=== PATIENT | male | born 1945 | race Caucasian/White ===

== ENCOUNTER 2019-11-30 07:35 | Outpatient (CLI) | payer MEDICARE, SELFPAY ==
[2019-11-30 08:15] LABS: Alanine Aminotransferase 63 U/L (4-50); Albumin Level 4.4 g/dL (3.5-5.1); Alkaline Phosphatase 62 U/L (38-126); Aspartate Amino Transferase 53 U/L (17-59); Bilirubin,Total 0.6 mg/dL (0.2-1.3); Blood Urea Nitrogen 24 mg/dL (9-20); Calcium 9.1 mg/dL (8.4-10.2); Carbon Dioxide 24 mmol/L (22-30); Chloride 107 mmol/L (98-107); Cholesterol 108 mg/dL (0-200); Estimated Glomerular Filt Rate > 60; Glucose 118 mg/dL (75-110); HDL Direct 36 mg/dL; Potassium 4.3 mmol/L (3.4-5.0); Sodium 139 mmol/L (137-145); Triglycerides 74 mg/dL (<150)
[2019-11-30 08:26] LABS: LDL Cholesterol Direct 48 mg/dL
== END 2019-11-30 07:36 | disposition home or self-care (01) ==
PROVIDERS: PCP Family Medicine; Visit Provider Internal Medicine Cardiovascular Disease
DX: E78.5 Hyperlipidemia, unspecified (principal)
CPT/HCPCS: 36415; 80053; 80061

== ENCOUNTER 2020-09-26 06:57 | Outpatient (CLI) | payer MEDICARE, SELFPAY ==
[2020-09-26 07:45] LABS: Add Urine Microscopic? NO; Appearance Urine Clear (Clear); Bilirubin Urine Negative (Negative); Blood Urine Negative (Negative); Color Urine Yellow (Yellow); Glucose Urine UA Negative (Negative); Ketones Urine Negative (Negative); Leukocyte Esterase Ur Negative LEU/UL (NEGATIVE); Nitrate Urine Negative (Negative); Protein Urine Negative (Negative); Specific Grav Ur 1.017 (1.001-1.035); Urobilinogen Urine Negative mg/dL (<2.0)
[2020-09-26 07:51] LABS: Basophils Absolute Auto 0.1 K/mm3 (0.0-0.1); Basophils Percent Auto 0.9 % (0.2-1.2); Eosinophils Absolute Auto 0.3 K/mm3 (0-0.3); Eosinophils Percent Auto 4.2 % (0-4.4); Hematocrit 41.1 % (42.0-52.0); Hemoglobin 14.1 g/dL (14.0-18.0); Immature Granulocyte Absolute 0.01 K/mm3 (0.00-0.031); Immature Granulocyte Percent A 0.2 % (0-0.5); Lymphocytes Absolute Auto 2.11 K/mm3 (0.9-3.2); Mean Corpuscular HGB Conc 34.3 g/dl (32-36); Mean Corpuscular Hemoglobin 30.1 pg (26-34); Mean Corpuscular Volume 87.6 fl (80-100); Mean Platelet Volume 9.6 fl (7.4-10.4); Monocytes Absolute Auto 0.7 K/mm3 (0.1-0.6); Monocytes Percent Auto 10.2 % (2.6-8.5); Neutrophils Absolute Auto 3.3 K/mm3 (1.3-6.7); Neutrophils Percent Auto 51.5 % (45.5-73.1); Platelet Count Result 181 k/mm3 (150-375); Red Blood Count 4.69 M/mm3 (4.6-6.20); White Blood Count 6.4 K/mm3 (4.5-10.0)
[2020-09-26 08:57] LABS: LDL Cholesterol Direct 53 mg/dL
[2020-09-26 09:06] LABS: Alanine Aminotransferase 35 U/L (4-50); Albumin Level 4.2 g/dL (3.5-5.1); Alkaline Phosphatase 55 U/L (38-126); Anion Gap 5 mmol/L (8-16); Aspartate Amino Transferase 42 U/L (17-59); Bilirubin,Total 0.7 mg/dL (0.2-1.3); Blood Urea Nitrogen 17 mg/dL (9-20); Calcium 9.3 mg/dL (8.4-10.2); Carbon Dioxide 28 mmol/L (22-30); Chloride 108 mmol/L (98-107); Cholesterol 112 mg/dL (0-200); Estimated Glomerular Filt Rate > 60; Glucose 109 mg/dL (75-110); HDL Direct 38 mg/dL; Potassium 4.1 mmol/L (3.4-5.0); Sodium 141 mmol/L (137-145); Triglycerides 95 mg/dL (<150)
[2020-09-26 09:32] LABS: Prostate Specific Antigen 1.3 ng/mL (< OR = 4.0)
[2020-09-26 09:41] LABS: Hemoglobin A1C 5.9 % (<5.7)
== END 2020-09-26 06:58 | disposition home or self-care (01) ==
PROVIDERS: PCP Family Medicine; Visit Provider Family Medicine
DX: R35.1 Nocturia (principal); E78.2 Mixed hyperlipidemia; R73.01 Impaired fasting glucose; G47.33 Obstructive sleep apnea (adult) (pediatric)
CPT/HCPCS: 36415; 80048; 80061; 80076; 81003; 83036; 84153; 84443; 85025

== ENCOUNTER 2020-10-08 08:49 | Outpatient (CLI) | payer MEDICARE, SELFPAY | END 2020-10-08 08:50 | disposition home or self-care (01) | LOC: ANHAUDIO 08:51 | PROVIDERS: PCP Family Medicine; Visit Provider Otolaryngology | DX: H93.12 Tinnitus, left ear (principal); H91.93 Unspecified hearing loss, bilateral | CPT/HCPCS: 92557; 92567 ==

== ENCOUNTER → 2020-12-06 00:32 | Outpatient (CLI) | payer MEDICARE, SELFPAY ==
[2020-12-06 21:20] LABS: SARS-CoV-2 RNA PCR Negative
== END ==
PROVIDERS: PCP Family Medicine; Visit Provider Internal Medicine Gastroenterology
DX: Z01.812 Encounter for preprocedural laboratory examination (principal); Z20.822 Contact with and (suspected) exposure to COVID-19
CPT/HCPCS: C9803; U0003; U0005

== ENCOUNTER 2020-12-09 02:18 | Day surgery (SDC) | payer MEDICARE, SELFPAY ==
[2020-11-20 13:56] VITALS: BMI 32.5
--- NOTE | 2020-12-08 14:29 | P.PNAN_ITS ---
Anes - Initial Pre Proc Eval Procedure: Operation Date: 12/09/20 08:00 Proposed Procedures p Screening Colonoscopy - Wayne Barton MD Date/Time: 12/08/20 14:29 Surgeon: Wayne Barton MD Pre Op Diagnosis: hx of colon polyps Patient Data Age: 75 Gender: M Height: 1.73 m Weight: 97 kg Allergies Allergy/AdvReac Type Severity Reaction Status Date / Time Iodinated Contrast Media Allergy Unknown Stopped Verified 12/09/20 06:44 Breathing morphine Allergy Unknown Unknown Verified 12/09/20 06:44 Penicillins Allergy Unknown Unknown Verified 12/09/20 06:44 Contrast Media Allergy Severe Stopped Uncoded 11/24/20 10:46 Breathing Home Medications Medication Instructions Recorded Confirmed Type aspirin 81 mg tablet,delayed 81 mg PO DAILY 04/19/19 12/09/20 History release atorvastatin 40 mg tablet 40 mg PO DAILY #90 tablet 09/16/20 11/24/20 Rx famotidine 20 mg tablet 20 mg PO BID PRN tablet 09/16/20 12/09/20 History metoprolol succinate 25 mg See Rx Instructions .ROUTE 11/09/20 11/24/20 Rx tablet,extended release 24 hr .COMPLEX #90 tablet Patient hx anesthesia problems: none Family hx anesthesia problems: none PMFSH Past Medical History Medical History Abnormal fasting glucose Adenomatous colon polyp (09/24/11) 3 adenomatous polyps Ascending aortic aneurysm BMI 33.0-33.9,adult CAD in [place] artery Chest pain in adult 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 Dyslipidemia Gastro-esophageal reflux disease without esophagitis Hypersomnia Moderate aortic stenosis Nocturia Obstructive sleep apnea GIOVANI on CPAP Personal history of other diseases of the circulatory system SOB (shortness of breath) Unspecified atrial flutter Surgical History Surgical History Aortic valve replaced H/O elbow surgery H/O hemorrhoidectomy H/O thoracic aortic aneurysm repair History of aortic valve replacement with bioprosthetic valve Family History Family History Father Acute myocardial infarction Social History Social History Smoking status: Former smoker Second hand tobacco smoke exposure: No Smoking end date: 05/30/69 Alcohol intake: never Substance use: never Substance use type: does not use Living arrangements: with family Spiritual care concerns: No Anes - Eval Final PreProcedure Day of Procedure 12/08/20 14:29 Patient weight: obese Heart: regular rate and rhythm Lungs: clear to auscultation and normal air movement Airway: Mallampati scale class II Neurological: alert and oriented Last oral intake: >/= 8 hours ASA classification: III Emergent: no Anesthetic plan: proceed Anesthesia type and monitoring: general GIVS and standard monitoring Informed Consent: The patient's anesthetic plan and its attendant risks and benefits were discussed with the patient/family/POA. Questions were solicited and answers provided to the satisfaction of the patient/family/POA.
[2020-12-09 06:48] VITALS: BP 117/82; PULSE 75; RESP 20; TEMP 35.8; O2SAT 99
[2020-12-09] MEDS: LACTATED RINGERS 1,000 ML 150 ML IV CONT (06:58)
--- NOTE | 2020-12-09 07:55 | PM.HPGS ---
History of Present Illness History of Present Illness Consent: Risks, benefits, and alternatives have been discussed and questions answered. Patient agrees to proceed with procedure. Chief complaint: hx of colon polyps Narrative: Effie Sotelo is a 75 year old male with colon polyps, due to have another colonoscopy Review of Systems Constitutional: Constitutional: Denies headache(s) and Denies weakness Eyes: Eyes: Denies blurry vision ENT: Reports Normal hearing present, Denies headache(s) and Denies neck pain Cardiovascular: Cardiovascular: Denies chest pain and Denies dyspnea Respiratory: Respiratory: Denies dyspnea Gastrointestinal: Gastrointestinal: Reports no additional gastrointestinal complaints Genitourinary: Genitourinary: Denies dysuria Musculoskeletal: Musculoskeletal: Denies neck pain Integumentary/Breasts: Skin/Breast: Denies dry skin Neurologic: Reports Normal hearing present, Denies headache(s) and Denies weakness Psychiatric: Psychiatric: Denies anxiety Endocrine: Endocrine: Denies change in body appearance Hematologic/Lymphatic: Hematologic/Lymphatic: Denies easy bleeding Allergic/Immunologic: Allergic/Immunologic: Denies urticaria PMF Past Medical History Medical History Abnormal fasting glucose Adenomatous colon polyp (09/24/11) 3 adenomatous polyps Ascending aortic aneurysm BMI 33.0-33.9,adult CAD in [place] artery Chest pain in adult 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 Dyslipidemia Gastro-esophageal reflux disease without esophagitis Hypersomnia Moderate aortic stenosis Nocturia Obstructive sleep apnea GIOVANI on CPAP Personal history of other diseases of the circulatory system SOB (shortness of breath) Unspecified atrial flutter Surgical History Surgical History Aortic valve replaced H/O elbow surgery H/O hemorrhoidectomy H/O thoracic aortic aneurysm repair History of aortic valve replacement with bioprosthetic valve Family History Family History Father Acute myocardial infarction Social History Social History Smoking status: Former smoker Second hand tobacco smoke exposure: No Smoking end date: 05/30/69 Alcohol intake: never Substance use: never Substance use type: does not use Living arrangements: with family Spiritual care concerns: No Meds Home Medications and Allergies Home Medications Medication Instructions Recorded Confirmed Type aspirin 81 mg tablet,delayed 81 mg PO DAILY 04/19/19 12/09/20 History release atorvastatin 40 mg tablet 40 mg PO DAILY #90 tablet 09/16/20 11/24/20 Rx famotidine 20 mg tablet 20 mg PO BID PRN tablet 09/16/20 12/09/20 History metoprolol succinate 25 mg See Rx Instructions .ROUTE 11/09/20 11/24/20 Rx tablet,extended release 24 hr .COMPLEX #90 tablet Allergies Allergy/AdvReac Type Severity Reaction Status Date / Time Iodinated Contrast Media Allergy Unknown Stopped Verified 12/09/20 06:44 Breathing morphine Allergy Unknown Unknown Verified 12/09/20 06:44 Penicillins Allergy Unknown Unknown Verified 12/09/20 06:44 Contrast Media Allergy Severe Stopped Uncoded 11/24/20 10:46 Breathing Vital Signs Vital Signs - 24 hr 12/09/20 06:48 Temperature 96.5 F L Pulse Rate 75 Respiratory Rate 20 Blood Pressure 117/82 Pulse Oximetry 99 Exam Const: General: comfortable and no acute distress HENMT: General nose exam: Normal nares present Eyes: General: appearance normal, both eyes and all related structures Neck: Neck: no JVD Resp: Auscultation: clear to auscultation bilaterally Cardio: Rate: regular rate Rhythm: regular rhythm GI: Inspection: non-distended GI Palp: Yes Soft to palpation Skin
[2020-12-09 08:33] VITALS: BP 118/76; PULSE 61; RESP 19; O2SAT 100
[2020-12-09 08:43] VITALS: BP 125/89; PULSE 60; RESP 16; O2SAT 100
[2020-12-09 08:53] VITALS: BP 145/93; PULSE 58; RESP 15; O2SAT 99
== END 2020-12-09 09:09 | disposition home or self-care (01) ==
PROVIDERS: PCP Family Medicine; Visit Provider Internal Medicine Gastroenterology
PROC: 0DJD8ZZ Inspection of Lower Intestinal Tract, Via Natural or Artificial Opening Endoscopic (ICD-10-PCS; CPT 45378; principal; 2020-12-09 08:00)
DX: Z12.11 Encounter for screening for malignant neoplasm of colon (principal); K63.5 Polyp of colon; D12.3 Benign neoplasm of transverse colon; K62.82 Dysplasia of anus; K57.30 Diverticulosis of large intestine without perforation or abscess without bleeding; K64.8 Other hemorrhoids; Z79.82 Long term (current) use of aspirin; I71.4 Abdominal aortic aneurysm, without rupture; I25.10 Atherosclerotic heart disease of native coronary artery without angina pectoris; E78.5 Hyperlipidemia, unspecified; I35.0 Nonrheumatic aortic (valve) stenosis; K21.9 Gastro-esophageal reflux disease without esophagitis; G47.33 Obstructive sleep apnea (adult) (pediatric); I48.92 Unspecified atrial flutter; E66.9 Obesity, unspecified; Z68.31 Body mass index [BMI] 31.0-31.9, adult; Z87.891 Personal history of nicotine dependence
CPT/HCPCS: 45385; 45381; 88305; C9803; J2704; J7120; U0003; U0005

== ENCOUNTER 2021-09-22 06:40 | Outpatient (CLI) | payer MEDICARE, SELFPAY ==
[2021-09-22 07:46] LABS: Add Urine Microscopic? NO; Appearance Urine Clear (Clear); Bilirubin Urine Negative (Negative); Blood Urine Negative (Negative); Color Urine Yellow (Yellow); Glucose Urine UA Negative (Negative); Ketones Urine Negative (Negative); Leukocyte Esterase Ur Negative LEU/UL (NEGATIVE); Nitrate Urine Negative (Negative); Protein Urine Negative (Negative); Specific Grav Ur 1.015 (1.001-1.035); Urobilinogen Urine Negative mg/dL (<2.0)
[2021-09-22 07:55] LABS: Alanine Aminotransferase 39 U/L (4-50); Albumin Level 4.7 g/dL (3.5-5.1); Alkaline Phosphatase 62 U/L (38-126); Anion Gap 6 mmol/L (8-16); Aspartate Amino Transferase 43 U/L (17-59); Bilirubin,Total 0.5 mg/dL (0.2-1.3); Blood Urea Nitrogen 18 mg/dL (9-20); Calcium 9.5 mg/dL (8.4-10.2); Carbon Dioxide 29 mmol/L (22-30); Chloride 107 mmol/L (98-107); Cholesterol 123 mg/dL (0-200); Estimated Glomerular Filt Rate > 60; Glucose 112 mg/dL (65-110); HDL Direct 41 mg/dL; Hemoglobin A1C 5.5 % (<5.7); Potassium 4.3 mmol/L (3.4-5.0); Sodium 142 mmol/L (137-145); Triglycerides 82 mg/dL (<150)
[2021-09-22 08:06] LABS: LDL Cholesterol Direct 54 mg/dL
[2021-09-22 09:01] LABS: Folic Acid 8.8 ng/mL (2.76->20)
== END 2021-09-22 06:41 | disposition home or self-care (01) ==
LOC: ANHLAB 06:44
PROVIDERS: PCP Family Medicine; Visit Provider Family Medicine
DX: R73.01 Impaired fasting glucose (principal); E78.2 Mixed hyperlipidemia; R41.3 Other amnesia
CPT/HCPCS: 36415; 80048; 80061; 80076; 81003; 82607; 82746; 83036; 84443

== ENCOUNTER 2021-10-19 12:27 | Outpatient (CLI) | payer MEDICARE, SELFPAY ==
--- NOTE | 2021-10-19 12:46 | ECHO_ITS ---
Patient Info Name: Effie Sotelo Age: 76 years : 1945 Gender: Male Ht: 68 in Wt: 203 lbs BSA: 2.13 m2 HR: 71 bpm BP: 142 / 89 mmHg Technical Quality: Fair Exam Date: 10/19/2021 1:14 PM Exam Location: [facility] Patient Status: Outpatient Admit Date: 10/19/2021 Staff Ordering Physician: Doyle Long DO Manager Of Broadcast Content: Zoey Mustafa RDCS Attending Provider: Doyle Logn DO Referring Physician: Ethan JAQUEZ; Exam Type: CA echo doppler color flow Study Info Indications - AVR Complete two-dimensional, color flow and Doppler transthoracic echocardiogram is performed. Summary 1. Complete two-dimensional, color flow and Doppler transthoracic echocardiogram is performed. 2. Left ventricular chamber dimension is normal. 3. Left ventricular systolic function is normal, estimated at 65-70%. 4. There is mildly increased left ventricular wall thickness. 5. The left ventricular diastolic function is grade I diastolic dysfunction. 6. E/e' 6 is not elevated. 7. Bioprosthetic aortic valve. 8. There is trace tricuspid valve regurgitation. 9. No pulmonary hypertension, estimated pulmonary arterial systolic pressure is 23 mmHg. Left Ventricle E/e' 6 is not elevated. Left ventricular chamber dimension is normal. Left ventricular systolic function is normal, estimated at 65-70%. There is mildly increased left ventricular wall thickness. The left ventricular diastolic function is grade I diastolic dysfunction. Right Ventricle Right ventricular chamber dimension is normal. Right ventricular systolic function is normal. Left Atria Left atrial chamber dimension is normal. Right Atria Right atrial chamber dimension is normal. Aortic Valve Bioprosthetic aortic valve. There is no bioprosthetic aortic valve stenosis. There is no regurgitation of the bioprosthetic aortic valve. Pulmonic Valve There is no pulmonic regurgitation. Mitral Valve There is no mitral valve stenosis. There is no mitral valve regurgitation. Tricuspid Valve There is trace tricuspid valve regurgitation. No pulmonary hypertension, estimated pulmonary arterial systolic pressure is 23 mmHg. Pericardium/Pleural There is no pericardial effusion. Inferior Vena Cava Normal inferior vena cava with >50% collapse upon inspiration consistent with normal right atrial pressure, 5 mmHg. Aorta The aortic root size at the sinus of Valsalva is normal. Left Ventricular Outflow Tract Name Value Normal LVOT 2D LVOT Diameter 2.1 cm LVOT Doppler LVOT Peak Gradient 6 mmHg LVOT Mean Gradient 4 mmHg LVOT VTI 25 cm LVOT VTI/AV VTI Ratio 0.7 LVOT Stroke Volume 86 ml LVOT CO 18.4 l/min LVOT CI 8.7 l/min/m2 Pulmonic Valve Name Value Normal
== END 2021-10-19 12:28 | disposition home or self-care (01) ==
PROVIDERS: PCP Family Medicine; Visit Provider Internal Medicine Cardiovascular Disease
DX: Z95.3 Presence of xenogenic heart valve (principal)
CPT/HCPCS: 93306

== ENCOUNTER 2021-10-19 12:29 | Outpatient (CLI) | payer MEDICARE, SELFPAY ==
--- NOTE | ~2021-10-19 | CT_ITS ---
EXAMINATION: CTA chest EXAM DATE: 10/19/2021 14:04 INDICATION: Z98.890 - Other specified postprocedural states . History of thoracic aortic aneurysm. TECHNIQUE: Computed tomographic angiography (CTA) of the chest was performed with 100 mL Omnipaque-30 0 intravenous contrast. Automated exposure control and iterative reconstruction technique were employ ed. The dose-length product was 571.92 mGy-cm. Maximum intensity projection 3D-reconstructions of the aorta and other arteries were constructed by the technologist on a separate workstation. COMPARISON: 01/10/2018. FINDINGS: Intact sternotomy wires. Changes of ascending aortic repair. The aorta measures 4.3 cm just above the level of the repair, and 3.7 cm at the level of repair. Mild arch calcifications. Aortic e ctasia. The proximal descending aorta measures up to 4.3 cm, which is stable by my measurements. No d issection. Scanning was performed through the renal arteries. The celiac, SMA, renal arteries are pat ent, with origin calcifications. There are no pleural or pericardial effusions. Tracheobronchial t ree is patent. There is no mediastinal, hilar or axillary lymphadenopathy. There is no pneumothor ax. Heart normal in size. Moderate coronary artery calcification. Aortic valve replacement. Uppe r abdomen is unremarkable. There is thoracic spondylosis without osteoblastic or osteolytic lesions identified. IMPRESSION: Fusiform dilation of the ascending and descending thoracic aorta. Status post ascending t horacic aortic repair. Consider follow-up CT in 2-3 years to assess stability. Reviewed, dictated and finalized at location K. IMPRESSION: Fusiform dilation of the ascending and descending thoracic aorta. S tatus post ascending thoracic aortic repair. Consider follow-up CT in 2-3 years to assess stability.
== END 2021-10-19 12:30 | disposition home or self-care (01) ==
PROVIDERS: PCP Family Medicine; Visit Provider Internal Medicine Cardiovascular Disease
DX: Z86.79 Personal history of other diseases of the circulatory system (principal); Z98.890 Other specified postprocedural states
CPT/HCPCS: 71275; 93306; Q9967

== ENCOUNTER 2021-12-13 11:58 | Emergency (ER) | payer MEDICARE, SELFPAY ==
[2021-12-13] VITALS (11 sets, daily range): BP systolic 66–103; BP diastolic 49–70; PULSE 89–104; RESP 11–27; O2SAT 96–98
--- NOTE | ~2021-12-13 | XR_ITS ---
EXAM: XR abdomen NG/feed tube insert DATE: 12/13/2021 14:37 HISTORY: NG TUBE PLACEMENT . COMPARISON: None available. FINDINGS: NG tube, tip and side port terminating over the stomach. Abandoned epicardial pacing wires . Intact sternotomy wire. Paucity of bowel gas. No organomegaly. No abnormal abdominal calcification. Degenerative change in the lumbar spine. IMPRESSION: NG tube, in good position. Reviewed, dictated and finalized at location K. IMPRESSION: NG tube, in good position.
--- NOTE | ~2021-12-13 | XR_ITS ---
EXAMINATION: XR chest ET placement Exam Date/Time: 12/13/2021 14:25 CDT HISTORY: ET tube placement Comparison: Same date at 12:23 PM. RESULT: Lines, tubes, and devices: Endotracheal tube terminates in the right mainstem bronchus. Intact fontanez otomy wires. Lungs and pleura: Diffuse reticular pattern with indistinct vascular margins. Cardiomediastinal silhouette: Stable cardiomediastinal silhouette. Other: No acute osseous or upper abdominal finding. IMPRESSION: Right mainstem bronchus intubation, consider 5.5 cm retraction. Vascular congestion/interstitial wale a. Results reported telephonically to Dr. Hay by Dr. Kowalski at 3:55 PM on 12/13/2021. Reviewed, dictated and finalized at location K. IMPRESSION: Right mainstem bronchus intubation, consider 5.5 cm retraction. Vascular conges tion/interstitial edema. Results reported telephonically to Dr. Hay by Dr. Kowalski at 3:55 PM on 022.
--- NOTE | ~2021-12-13 | CT_ITS ---
EXAMINATION: CT diagnostic chest wo con DATE: 12/13/2021 12:37 INDICATION: Chest pain. History of prior aortic dissection TECHNIQUE: Computed tomography (CT) of the chest was performed without intravenous contrast. Automate d exposure control and iterative reconstruction technique were employed. Exam dose: 767.21 mGy-cm to bertram exam DLP. COMPARISON: None FINDINGS: There is a large high density pericardial effusion, measuring up to 1.7 cm thickness, consi stent with hemopericardium. I telephoned the emergency room at 1308 hours with this critical life thr eatening finding; the emergency room physician Dr. Hay was putting in a central line on the patient . I gave the results and explained the critical nature of the finding to Kaye medical sales specialist. Differential diagnosis for the etiology of hemopericardium includes type I aortic dissection, myocard ial infarction with necrosis and rupture of the ventricular wall, blunt trauma (but no such history i s given). Considering the patient's history of prior aortic dissection according to Dr. Hay, this i s likely due to type I aortic dissection recurrence . Status post sternotomy and aortic valve repair. Coronary artery calcification. The ascending aorta measures approximately 4 cm diameter. The mid aortic arch measures up to approxim ately 3.4 cm diameter. The descending thoracic aorta diameter is approximately 3.2 cm. Normal size and homogeneous density of the thyroid gland. No hilar or mediastinal mass lesion or lymp hadenopathy is detected. No pulmonary consolidation or pneumothorax or pleural effusion. Normal morphology of the adrenal glands. Small sliding hiatal hernia. Included skeletal structures are unremarkable. 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 Differential diagnosis Would include myocardial infarction with myocardial rupture, and blunt trauma Status post sternotomy and aortic valve replacement Reviewed, dictated and finalized at Location [facility]. Reviewed, dictated and finalized at location A. IMPRESSION: Prominent hemopericardium, likely secondary to recurrent aortic di ssection. Differential diagnosis Would include myocardial infarction with myocardial rupture, and blunt trauma Status post sternotomy and aortic valve replacement
--- NOTE | ~2021-12-13 | XR_ITS ---
XR chest 1V portable DATE: 12/13/2021 12:27 INDICATION: Chest pain. History of aortic dissection. TECHNIQUE: Portable AP chest on 12/14/2019 07/11/2022 COMPARISON: None FINDINGS: Status post sternotomy. Cardiomegaly. Aortic calcification and ectasia or aneurysm. Mild pulmonary vascular congestion and mild prominence of the minor fissure in addition to Michelle B-l maddi, consistent with mild congestive heart failure subpleural and pulmonary interstitial edema. Mild elevation right diaphragm. No pleural effusion or pneumothorax is evident IMPRESSION: Heart failure with subpleural and pulmonary interstitial edema Reviewed, dictated and finalized at location A.
--- NOTE | ~2021-12-13 | CT_ITS ---
EXAMINATION: CT brain wo con DATE: 12/13/2021 12:37 INDICATION: Syncope TECHNIQUE: Computed tomography (CT) of the head was performed without intravenous contrast. The mA wa s adjusted according to patient size. Iterative reconstruction technique was employed. Exam dose: 31 5.48 mGy-cm total exam DLP. COMPARISON: 05/18/2010 CT brain FINDINGS: No intracranial mass lesion or hemorrhage, midline shift or mass effect effect. No cerebrov ascular accident is detected. No subdural or epidural hematoma. The orbital contents are unremarkable. No fracture or bone destruction of the cranial vault. Small mucous retention cyst or polyp along the lower anteromedial wall of the right maxillary sinus. Patchy mild soft tissue thickening of left ethmoid air cells. The paranasal sinuses are otherwise unr emarkable. Mastoid air cells are normally developed and aerated. IMPRESSION: Cerebral atherosclerosis No significant intracranial abnormality or skull fracture Reviewed, dictated and finalized at [facility]. Reviewed, dictated and finalized at [facility].
--- NOTE | 2021-12-13 12:03 | ECG_ITS ---
Measurements Intervals [place] Rate: 114 P: 31 NE: 116 QRS: 0 QRSD: 116 T: 16 QT: 349 QTc: 481 Interpretive Statements SINUS TACHYCARDIA WITH SHORT NE INTERVAL VENTRICULAR COUPLET AND VENTRICULAR PREMATURE COMPLEX LOW QRS VOLTAGE IN PRECORDIAL LEADS INCOMPLETE RIGHT BUNDLE BRANCH BLOCK BORDERLINE ST-T WAVE ABNORMALITY- INF/LAT LEADS ABNORMAL ECG Electronically Signed On 12-13-2021 22:58:33 CDT by Doyle Long D.O.
--- NOTE | 2021-12-13 12:11 | ED.CHESTPAIN ---
HPI - Chest Pain General Chief Complaint: Chest Pain Stated Complaint: CP Time Seen by Provider: 12/13/21 12:10 Source: patient Mode of arrival: EMS Limitations: clinical condition History of Present Illness HPI narrative: Patient is 73 years old white male was in the sikh today, asymptomatic, sitting, fell over to 1 side, unresponsive, gurgling and snoring, diaphoretic, unresponsive. Lasted until the ambulance arrived. No improvement. In the emergency room patient still diaphoretic, slowly responding to verbal commands, diaphoretic, looks ill, complaining of chest pain radiating to his back. told me that patient had history of ascending and descending thoracic aneurysm, had repaired twice at [facility], last evaluation was 1 month ago, still have another thoracic aneurysm 4.3 cm at that time. Also his daughter told me that patient have history of sporadic onset of bradycardia, heart rate dropped in the 50s, pacemaker was discussed before, Holter monitor, and patient had similar symptom like today in the past, numerous of time without loss of consciousness. The daughter always told me that patient had chronic history of low blood pressure and sometimes go down to the 40s and usually gets better on his own after he keep his legs up History of hyperlipidemia, cardiac bypass, thoracic aneurysm repair twice, currently patient on baby aspirin, DNR. Related Data Allergies Allergy/AdvReac Type Severity Reaction Status Date / Time Penicillins Allergy Unknown Verified 05/26/10 13:58 Review of Systems Review of Systems: All systems reviewed & are unremarkable except as noted in HPI and below Exam Narrative: General appearance: Well-developed, well-nourished, sick looking, diaphoretic, pale Skin: Pale, diaphoretic Head: Normocephalic, nontraumatic Eyes: Clear conjunctiva ENT: Oropharynx normal, ears normal, nose normal Neck: Supple, nontender Chest and respiratory: Airway patent, no respiratory distress, no accessory muscle use Heart: Regular rate/rhythm Abdomen: Soft, nontender, no organomegaly, quiet bowel sounds Vascular: Normal peripheral pulses, normal capillary refill. Musculoskeletal: Normal range of motion, nontender back Neurologic: Alert and oriented extremely slow to respond to questions, generally lethargic Course Course Emergency Course: Patient arrived diaphoretic, with a severe chest pain radiating to his back, history of thoracic aortic aneurysm repair twice. EKG on arrival showed no STEMI, dissection was high probability, CT scan of the chest without contrast ordered. Patient is allergic to contrast which can cause swelling and dyspnea. The scan showed hemopericardium, possible dissection. Blood pressure was low, 85/65, gradually started going south, central line placed, patient was DNR according to his and his daughter later few minutes before transfer to [facility] they changed their mind to make him full code, patient was intubated prior to transfer here, Levophed started to keep systolic blood pressure around 90. Patient received 4 L of normal saline during his presence in the ED Consultations Consultation #1: DR OLIVO Thoracic surgeon at [facility] Consultation #2: DR KELLY ED physician at [facility] who accepted patient transfer failed Procedures Central Line Placement Right Femoral: Central Line Date: 12/13/21 Central Line Time: 14:17 Discussed w/ the patient/family/POA,the placement of a central venous catheter, including its clinical necessity/indication & associated potential risks, benifits and alternatives.: Yes The patient/family/POA understand(s) and acknowledge(s) the need
[2021-12-13] MEDS: ASPIRIN 81 MG CHEWABLE TABLET 324 MG PO (12:12)
[2021-12-13 12:16] LABS: Glucose Point of Care 284 mg/dl (65-105)
[2021-12-13 12:17] LABS: Basophils Absolute Auto 0.1 K/mm3 (0.0-0.1); Basophils Percent Auto 0.9 % (0.2-1.2); Eosinophils Absolute Auto 0.3 K/mm3 (0-0.3); Eosinophils Percent Auto 2.7 % (0-4.4); Hematocrit 39.4 % (42.0-52.0); Hemoglobin 13.2 g/dL (14.0-18.0); Immature Granulocyte Absolute 0.03 K/mm3 (0.00-0.031); Immature Granulocyte Percent A 0.3 % (0-0.5); Lymphocytes Absolute Auto 5.05 K/mm3 (0.9-3.2); Lymphocytes Percent Auto 49.5 % (18.3-44.2); Mean Corpuscular HGB Conc 33.5 g/dl (32-36); Mean Corpuscular Volume 89.5 fl (80-100); Mean Platelet Volume 9.5 fl (7.4-10.4); Monocytes Absolute Auto 0.8 K/mm3 (0.1-0.6); Monocytes Percent Auto 7.6 % (2.6-8.5); Platelet Count Result 184 k/mm3 (150-375); Red Cell Distribution Width 12.8 % (11.5-14.5); White Blood Count 10.2 K/mm3 (4.5-10.0)
[2021-12-13] MEDS: SODIUM CHLORIDE 0.9% IV 1,000 ML 999 ML IV CONT ×4 (12:21→13:39)
--- NOTE | 2021-12-13 12:30 | PC.NURSE ---
76yr, M presents to the ED via EMS from [facility] with c/o chest pain. EMS reports patient was sitting in [facility] when he started having left sided chest pain, became diaphoretic, grabbed his chest, and collapsed. Patient was AXOx3 upon EMS arrival, however lethargic, extremely diaphoretic, and complaining of pain in the center of his chest. Upon arrival to ED room 14, patient is pale, cool, extremely diaphoretic. Patient A&O x3, however slow to respond and lethargic. Patient reports he feels very weak. Patient moved from EMS stretcher onto ED stretcher. Patient connected to cardiac, blood pressure, and pulse ox monitors. 12 lead EKG obtained and shown to Dr. Sandoval. Patient was hypotensive for EMS, EMS initiated 2 IV's prior to arrival, 18 gauge to the left AC, 20 gauge to the left hand. 1 liter Lactated ringers infusing and 1 liter of normal saline infusing, initiated by EMS. Patient clothing removed, patient remains hypotensive, keno writer/runner continued EMS fluids. EMS informed keno writer/runner that patient has hx of two aortic aneurysms, decision made by Dr. Hay to get patient to CT stat. Crash cart brought into room and AED pads placed on patient.
[2021-12-13 12:34] LABS: INR 1.3; Prothrombin Time 15.9 Seconds (11.1-14.7)
[2021-12-13 12:35] LABS: Alanine Aminotransferase 24 U/L (6-50); Albumin Level 3.5 g/dL (3.5-5.1); Alkaline Phosphatase 57 U/L (38-126); Anion Gap 14 mmol/L (8-16); Aspartate Amino Transferase 35 U/L (17-59); Bilirubin,Total 0.4 mg/dL (0.2-1.3); Blood Urea Nitrogen 16 mg/dL (9-20); Calcium 8.3 mg/dL (8.4-10.2); Carbon Dioxide 14 mmol/L (22-30); Chloride 113 mmol/L (98-107); Estimated Glomerular Filt Rate > 60; Glucose 253 mg/dL (65-110); Lipase 344 U/L (23-300); Partial Thromboplastin Time 28.5 SECONDS (22.3-36.8); Potassium 3.5 mmol/L (3.4-5.0); Sodium 141 mmol/L (137-145)
--- NOTE | 2021-12-13 12:45 | PC.NURSE ---
and TRUNG Austin transported patient to CT on cardiac, pulse ox, and blood pressure monitors with fluids infusing. Another bag of normal saline started prior to heading to CT. Patient moved from ER stretcher onto CT table. CT images obtained and patient moved back to ER stretcher. Patient remained extremely diaphoretic, patient less responsive, opens his eyes to name and when told to look at staff.
[2021-12-13 12:47] LABS: Troponin I < 0.012 ng/mL (0.000-0.034)
--- NOTE | 2021-12-13 12:48 | ECG_ITS ---
Measurements Intervals [place] Rate: 95 P: 21 LA: 144 QRS: 0 QRSD: 101 T: 19 QT: 383 QTc: 482 Interpretive Statements SINUS RHYTHM VENTRICULAR TRIGEMINY INCOMPLETE RIGHT BUNDLE BRANCH BLOCK LOW QRS VOLTAGE IN PRECORDIAL LEADS BORDERLINE ST ABNORMALITY- HIGH LATERAL LEADS BASELINE ARTIFACT- III, V1-V3 ABNORMAL ECG Electronically Signed On 12-13-2021 23:05:47 CDT by Doyle Long D.O.
[2021-12-13 13:06] LABS: CRP < 0.5 mg/dL (<1.0)
--- NOTE | 2021-12-13 13:10 | PC.NURSE ---
Patient brought back to ED room 14 by database report writer and Norman, RN. Patient no longer responsive to verbal stimuli or painful stimuli. Produce Shipper made Dr. Hay aware of patient's change in condition. Per Dr. Hay, patient is a DNR, however he came to bedside to see patient. Decision made to have central line supplies ready due to patient's persistent hypotensive state. Patient's and daughter at bedside. concerned about patient aortic aneurysm, Dr. Hay aware. Additional IV fluids initiated.
[2021-12-13] MEDS: NOREPINEPHRINE 8 MG/D5W 250 ML 8 MG/250 ML BAG 4.69 MG IV CONT (13:53)
--- NOTE | 2021-12-13 14:15 | PC.NURSE ---
Manager Assessment spoke with family regarding intubation of patient prior to transport to [facility]. Family made decision intubation patient prior to transport. Manager Assessment made Dr. Hay aware. Respiratory called, intubation supplies brought into room, including RSI medications. Equipment set up and ready to go.
[2021-12-13] MEDS: MIDAZOLAM HCL (*CRX) 2 MG/2 ML VIAL 4 MG IV PUSH (14:24)
[2021-12-13] MEDS: SUCCINYLCHOLINE CHLORIDE 20 MG/ML 10 ML VIAL 100 MG IV PUSH (14:25)
--- NOTE | 2021-12-13 14:45 | PC.NURSE ---
Ordered intubation medications given by TRUNG Napier. EMS arrived to bedside for patient transport to [facility]. Dr. Hay able to pass a 7.5 ETT with one attempt with use of glidescope. Patient then bagged by respiratory. + colorimetric device color change with bagging, equal chest rise and fall noted, with equal breath sounds auscultated. Family able to come say goodbye to patient prior to transport to [facility]. Patient then moved to EMS stretcher and placed on EMS ventilator. Fluids continued and Levophed continues to infuse. Programmer Analyst on EMS crew spoke to Dr. Hay about possible administration of blood product enroute to [facility], per Dr. Hay no blood at this time. Supervisor Pipeline Maintenance also asked Dr. Hay about blood product administration prior to patient leaving with EMS. Per Dr. Hay since unsure of underlying cause of patient's condition, no blood to be given right now. EMS aware and agreed to transport patient with fluids. A 5th bag of normal saline was initiated prior to patient leaving the ED as well, Levophed continued on ED pump sent with EMS.
[2021-12-13 14:47] LABS: SARS-CoV-2 RNA PCR Negative
== END 2021-12-13 14:45 | disposition short-term general hospital (02) ==
PROVIDERS: Emergency Medicine; Emergency Provider Emergency Medicine
DX: I71.00 Dissection of unspecified site of aorta (principal); I31.2 Hemopericardium, not elsewhere classified; I95.9 Hypotension, unspecified; R07.9 Chest pain, unspecified; Z20.822 Contact with and (suspected) exposure to COVID-19; E78.5 Hyperlipidemia, unspecified; Z79.82 Long term (current) use of aspirin; Z66 Do not resuscitate
CPT/HCPCS: 31500; 36415; 36556; 70450; 71045; 71250; 80053; 82948; 83690; 84484; 85025; 85610; 85730; 86140; 93005; 96365; 96375; 99291; A9270; C1751; C9803; J0330; J2250; J7030; U0003; U0005